=== PATIENT | male | born 1995 | race African-American/Black ===

== ENCOUNTER 2022-12-12 11:15 | Emergency (ER) | payer MEDICAID, OTHER ==
[~2022-12-12] VITALS: Ht 177.8 cm; Wt 77.3 kg
[2022-12-12 11:31] VITALS: TEMP 97.9
[2022-12-12] MEDS ORDERED: METOCLOPRAMIDE HCL 5 MG/ML 2 ML VIAL IVP ONE (12:30)
[2022-12-12] MEDS ORDERED: KETOROLAC TROMETHAMINE 30 MG/ML VIAL IVP ONE (12:30)
[2022-12-12] MEDS ORDERED: SODIUM CHLORIDE 0.9% 1,000 ML IV ONE (12:30)
[2022-12-12] MEDS ORDERED: DiphenhydrAMINE HCL 50 MG/ML VIAL IVP ONE (12:30)
[2022-12-12 12:40] VITALS: BP 95/53; PULSE 50; RESP 16
== END 2022-12-12 16:04 | disposition home or self-care (01) ==
LOC: EMS 11:34
DX: J32.9 Chronic sinusitis, unspecified (principal); R51.9 Headache, unspecified
CPT/HCPCS: 99285; 96374; 70450; 96375; 96361; J1200; J1885; J2765; J7030